=== PATIENT | female | born 1970 | race Caucasian/White ===

== ENCOUNTER 2016-06-17 06:58 | Day surgery (SDC) | payer OTHER ==
[~2016-06-17 06:58] MED LIST: RINGERS SOLUTION,LACTATED 1,000 ML IV PRN; ceFAZolin SODIUM 2 GM in DEXTROSE 5 % IN WATER 50 ML IV PRN
[2016-06-17 07:26] LABS: Hematocrit 33.8 % (37.0-47.0); Hemoglobin 10.1 gm/dL (12.5-16.0); Mean Cell Volume 68.4 fl (78-100); Mean Corpuscular Hemoglobin 20.4 pg (27-31); Mean Corpuscular Hgb Conc 29.9 g/dl (32-36); Mean Platelet Volume 9.3 fl (6.0-9.5); Neutrophil # 8.2 K/mm3 (1.3-6.0); Neutrophil % 75.2 % (42-75.0); Platelet Count 418 K/mm3 (150-450); Red Blood Count 4.94 M/mm3 (4.2-5.4); Red Cell Distribution Width 21.9 % (11.5-14.0)
[2016-06-17] MEDS ORDERED: BUPIVACAINE HCL/EPINEPHRINE 50 ML VIAL IJ ONE ×2 (08:25)
[2016-06-17] MEDS ORDERED: RINGERS SOLUTION,LACTATED 1,000 ML IV ONE (10:30)
[2016-06-17] MEDS ORDERED: oxyCODONE HCL/ACETAMINOPHEN 1 TAB TABLET PO PRN (10:33)
[2016-06-17] MEDS ORDERED: IBUPROFEN 600 MG TABLET PO PRN (10:34)
--- NOTE | 2016-06-17 10:39 | OR ---
Operative Report - Dictated Report Narrative: Operative Report - 06/17/16 Total Vaginal Hysterectomy Preoperative Diagnosis: Menorrhagia Postoperative Diagnosis: Menorrhagia Procedure: Total Vaginal Hysterectomy, Modified Jin's Culdoplasty Surgeon: Corrine Heredia Anesthesia: Jostin Lundberg TYPE DISK QUALITY CONTROL SUPERVISOR, general with endotracheal tube Findings: Normal-appearing tubes and ovaries. Fallopian tubes retracted bilaterally after removal of the uterus. Fluids: 800 ml EBL: 250 ml Drains: Straight cath after procedure, 100 mL of clear yellow urine Pathology: Uterus Complications: None Condition: Stable Procedure: The patient was taken to the operating room with IV fluids running. She was placed in the dorsal lithotomy position after anesthesia was induced. She was prepped and draped in the normal sterile fashion. A weighted speculum was placed in the posterior aspect of the vagina and a [place] retractor was placed in the anterior aspect of the vagina. Breisky retractors were placed laterally. The cervix was grasped with 2 single-tooth tenaculums. The cervix was injected circumferentially with 0.5% Marcaine with epinephrine. A circumferential incision was made around the cervix using a Parrish Hood scissors. Attention was then turned posteriorly. Sharp dissection was performed until the posterior peritoneal reflection was clearly visualized. The peritoneum was then entered sharply. Location was confirmed by visualization of the bowel. [place] retractor was then placed into the abdominal cavity. Attention was then turned anteriorly. Sharp dissection was performed until the anterior peritoneal reflection was visualized. It was entered sharply using the Parrish Hood scissors. Location was confirmed by visualization of bowel. The [place] retractor was then placed into the abdominal cavity. Attention was then turned posteriorly. The uterosacral ligaments were clamped with a curved Jeimy, transected and suture ligated using 0 Vicryl. These ligatures were tagged for later modified Jin's culdoplasty. Attention was then turned to the cardinal ligaments. They were clamped with the gyrus Jeimy clamp, cauterized with the gyrus and transected. The uterine arteries were clamped with the gyrus Jeimy, cauterized and transected for excellent hemostasis. The cornual angles were clamped with Jeimy clamps x 2 bilaterally and the uterus was amputated. The cornual angles were suture ligated with 0 Vicryl for excellent hemostasis. The tubes and ovaries were clearly visualized and were grossly normal in appearance. Bilateral salpingectomy not performed as the tubes and ovaries retracted after the amputation of the uterus at the cornual angle. The posterior vaginal cuff was reapproximated using 2-0 Vicryl in a running locked fashion for excellent hemostasis. The uterosacral tags were then utilized for culdoplasty. The suture was driven through the uterosacral ligament, reefed across the peritoneum posteriorly and brought out the midline of the posterior vaginal cuff. The vaginal cuff was closed in a vertical fashion with 2-0 Vicryl in a running lock stitch for excellent hemostasis. The culdoplasty stitch was tied down to elevate the vaginal cuff. The bladder was catheterized with a catheter and clear yellow urine was drained. The patient tolerated the procedure well. Sponge lap needle and instrument counts are correct x 2. The patient was taken to the recovery room in stable condition.
[2016-06-17 13:41] VITALS: BP 134/91
== END 2016-06-17 06:59 | disposition home or self-care (01) ==
LOC: AMB 06:58
PROVIDERS: ATTEND Obstetrics & Gynecology
PROC: 0UTC7ZZ Resection of Cervix, Via Natural or Artificial Opening (ICD-10-PCS; 2016-06-17)
PROC: 0UT97ZZ Resection of Uterus, Via Natural or Artificial Opening (ICD-10-PCS; principal; 2016-06-17 08:25)
DX: N80.0 Endometriosis of uterus (principal); N92.0 Excessive and frequent menstruation with regular cycle; F41.9 Anxiety disorder, unspecified; Z68.29 Body mass index [BMI] 29.0-29.9, adult